=== PATIENT | male | born 1960 | race Caucasian/White ===

== ENCOUNTER 2022-02-21 15:13 | Inpatient (IN) | payer OTHER ==
[~2022-02-21] VITALS: Ht 185.4 cm; Wt 122.0 kg
[2022-02-21] VITALS (11 sets, daily range): BP systolic 123–159; BP diastolic 75–90
[~2022-02-21 15:13] MED LIST: B121000 MC1 PO; BACLOFEN20 MG PO; CALCIUM600 M1 PO; CRESTOR10 MG PO; GABAPENTIN300 M2 PO; HYZAAR1 TAB PO; LANSOPRAZOLE30 MG PO; TRULICITY0.75 MG/0. SC; VITAMIN C500 M6 PO; ZINC50 M1 PO
[2022-02-21 16:34] LABS: URINE BILIRUBIN - DIPSTICK NEGATIVE (NEGATIVE); URINE BLOOD DIPSTICK NEGATIVE (NEGATIVE); URINE COLOR YELLOW; URINE GLUCOSE - DIPSTICK NEGATIVE (NEGATIVE); URINE KETONE NEGATIVE (NEGATIVE); URINE LEUK ESTERASE NEGATIVE (NEGATIVE); URINE PROTEIN - DIPSTICK NEGATIVE (NEG-TRACE); URINE UROBILINOGEN - DIPSTICK 0.2 E.U./dL (0.2)
[2022-02-21 16:38] LABS: URINE NITRITE - DIPSTICK NEGATIVE (Negative)
[2022-02-21 16:39] LABS: IMMATURE GRANULOCYTES 0.3 % (0.0-5.0); MEAN CELL VOLUME 90.1 fL CALC (80.0-100.0); MEAN CORPUSCULAR HGB 28.9 pG CALC (26.0-32.0); MEAN CORPUSCULAR HGB CONC 32.1 g/dL CAL (32.0-36.0); NEUT# 4.59 thou/uL (1.82-7.42); RED BLOOD COUNT 3.84 mill/uL (4.70-6.10); RED CELL DISTRI WIDTH 12.9 % (11.5-15.5)
[2022-02-21 16:50] LABS: ALBUMIN 4.8 g/dL (3.2-5.0); POTASSIUM 4.9 mmol/l (3.5-5.1)
[2022-02-21 16:57] LABS: BILIRUBIN, TOTAL 0.4 mg/dL (0.0-1.4); TOTAL PROTEIN 8.9 g/dL (6.3-8.2)
[2022-02-21 16:58] LABS: CREATININE 5.6 mg/dL (0.7-1.3); HEMATOCRIT 34.6 % (39.0-50.0); HEMOGLOBIN 11.1 g/dl (14.0-18.0)
[2022-02-21 18:06] LABS: MYOGLOBIN 132 ng/mL (0 - 121)
[2022-02-22] VITALS (7 sets, daily range): BP systolic 124–146; BP diastolic 76–87
[2022-02-22 05:34] LABS: HEMATOCRIT 36.7 % (39.0-50.0); HEMOGLOBIN 11.7 g/dl (14.0-18.0); MEAN CORPUSCULAR HGB 28.7 pG CALC (26.0-32.0); MEAN CORPUSCULAR HGB CONC 31.9 g/dL CAL (32.0-36.0); RED BLOOD COUNT 4.08 mill/uL (4.70-6.10); RED CELL DISTRI WIDTH 12.9 % (11.5-15.5)
[2022-02-22 05:51] LABS: CREATININE 4.8 mg/dL (0.7-1.3); POTASSIUM 4.5 mmol/l (3.5-5.1)
[2022-02-23 00:10] VITALS: BP 115/73
[2022-02-23 04:13] VITALS: BP 130/75
[2022-02-23 07:49] VITALS: BP 137/86
[2022-02-23 10:06] LABS: ALBUMIN 4.7 g/dL (3.2-5.0); POTASSIUM 4.9 mmol/l (3.5-5.1)
[2022-02-23 10:24] LABS: CREATININE 3.8 mg/dL (0.7-1.3)
[2022-02-23 11:12] VITALS: BP 129/80
[2022-02-23] MEDS ORDERED: TAMSULOSIN0.4 MG PO (12:26)
== END 2022-02-23 14:14 | disposition home or self-care (01) | DRG 683 ==
LOC: ED 15:13 → ED-I 17:40 → ED 20:04 → MS2 20:05
PROVIDERS: Internal Medicine Nephrology; Nurse Practitioner; ADMIT Hospitalist; ATTEND Hospitalist
PROC: 0T9B70Z Drainage of Bladder with Drainage Device, Via Natural or Artificial Opening (ICD-10-PCS; principal; 2022-02-21)
DX: N17.9 Acute kidney failure, unspecified (principal); N13.8 Other obstructive and reflux uropathy; N40.1 Benign prostatic hyperplasia with lower urinary tract symptoms; N18.4 Chronic kidney disease, stage 4 (severe); N25.81 Secondary hyperparathyroidism of renal origin; N13.39 Other hydronephrosis; R33.8 Other retention of urine; I12.9 Hypertensive chronic kidney disease with stage 1 through stage 4 chronic kidney disease, or unspecified chronic kidney disease; E11.22 Type 2 diabetes mellitus with diabetic chronic kidney disease; D63.1 Anemia in chronic kidney disease; E78.00 Pure hypercholesterolemia, unspecified; Z20.822 Contact with and (suspected) exposure to COVID-19

== ENCOUNTER 2022-03-13 14:16 | Observation (INO) | payer OTHER ==
[2022-03-13] VITALS (12 sets, daily range): BP systolic 100–137; BP diastolic 54–77
[~2022-03-13] VITALS: Ht 193 cm; Wt 113.0 kg
[~2022-03-13 14:16] MED LIST changes: +TAMSULOSIN0.4 MG PO
[2022-03-13 15:26] LABS: HEMATOCRIT 34.5 % (39.0-50.0); HEMOGLOBIN 10.9 g/dl (14.0-18.0); IMMATURE GRANULOCYTES 0.5 % (0.0-5.0); MEAN CELL VOLUME 89.4 fL CALC (80.0-100.0); MEAN CORPUSCULAR HGB 28.2 pG CALC (26.0-32.0); MEAN CORPUSCULAR HGB CONC 31.6 g/dL CAL (32.0-36.0); NEUT# 16.66 thou/uL (1.82-7.42); RED BLOOD COUNT 3.86 mill/uL (4.70-6.10)
[2022-03-13 15:35] LABS: URINE BILIRUBIN - DIPSTICK NEGATIVE (NEGATIVE); URINE BLOOD DIPSTICK SMALL (NEGATIVE); URINE COLOR YELLOW; URINE GLUCOSE - DIPSTICK NEGATIVE (NEGATIVE); URINE KETONE NEGATIVE (NEGATIVE); URINE PROTEIN - DIPSTICK TRACE mg/dL (NEG-TRACE); URINE UROBILINOGEN - DIPSTICK 0.2 E.U./dL (0.2)
[2022-03-13 15:37] LABS: URINE LEUK ESTERASE SMALL (NEGATIVE); URINE NITRITE - DIPSTICK NEGATIVE (Negative)
[2022-03-13 15:41] LABS: ALBUMIN 4.2 g/dL (3.2-5.0); ALKALINE PHOSPHATASE 89 u/l (38-126); ANION GAP 15 (6-22 (CALC)); BUN 38 mg/dL (8-23); CARBON DIOXIDE 24 mmol/l (22-30); CHLORIDE 103 mmol/l (95-108); LIPASE 89 u/l (23-300); SGOT/AST 20 u/l (19-48); SODIUM 137 mmol/l (137-146); TOTAL PROTEIN 7.6 g/dL (6.3-8.2)
[2022-03-13 15:43] LABS: BILIRUBIN, TOTAL 0.6 mg/dL (0.0-1.4); BUN/CREATININE RATIO 15 (12-20 (CALC)); CREATININE 2.6 mg/dL (0.7-1.3); GFR 25 ML/MIN (>=60 (CALC)); GFR FOR AFR.AMER. 31 ML/MIN (>=60 (CALC))
[2022-03-13 15:47] LABS: URINE WBC 20-50 WBC/hpf (0-5)
[2022-03-13 16:00] LABS: ACT PARTIAL THROMBO TIME 28.9 SECONDS (20.0-32.5); PROTHROMBIN TIME 10.9 SECONDS (9.0-12.5)
[2022-03-14] VITALS (9 sets, daily range): BP systolic 99–121; BP diastolic 57–67
[2022-03-14 05:24] LABS: HEMATOCRIT 31.2 % (39.0-50.0); HEMOGLOBIN 9.9 g/dl (14.0-18.0); MEAN CELL VOLUME 90.2 fL CALC (80.0-100.0); MEAN CORPUSCULAR HGB 28.6 pG CALC (26.0-32.0); MEAN CORPUSCULAR HGB CONC 31.7 g/dL CAL (32.0-36.0); RED BLOOD COUNT 3.46 mill/uL (4.70-6.10); RED CELL DISTRI WIDTH 13.2 % (11.5-15.5)
[2022-03-14 05:44] LABS: CREATININE 2.2 mg/dL (0.7-1.3); MAGNESIUM 1.5 mg/dL (1.6-2.3); POTASSIUM 4.3 mmol/l (3.5-5.1)
[2022-03-14 05:51] LABS: ALBUMIN 3.2 g/dL (3.2-5.0)
[2022-03-15 00:12] VITALS: BP 106/65
[2022-03-15 05:09] VITALS: BP 119/69
[2022-03-15 05:36] LABS: HEMATOCRIT 31.3 % (39.0-50.0); HEMOGLOBIN 9.9 g/dl (14.0-18.0); IMMATURE GRANULOCYTES 0.4 % (0.0-5.0); MEAN CELL VOLUME 89.9 fL CALC (80.0-100.0); MEAN CORPUSCULAR HGB 28.4 pG CALC (26.0-32.0); MEAN CORPUSCULAR HGB CONC 31.6 g/dL CAL (32.0-36.0); NEUT# 11.06 thou/uL (1.82-7.42); RED BLOOD COUNT 3.48 mill/uL (4.70-6.10); RED CELL DISTRI WIDTH 13.2 % (11.5-15.5)
[2022-03-15 05:58] LABS: BILIRUBIN, TOTAL 0.3 mg/dL (0.0-1.4); CREATININE 2.1 mg/dL (0.7-1.3); MAGNESIUM 2.1 mg/dL (1.6-2.3); POTASSIUM 3.9 mmol/l (3.5-5.1); TOTAL PROTEIN 5.8 g/dL (6.3-8.2)
[2022-03-15 07:36] VITALS: BP 118/72
[2022-03-15 10:15] VITALS: BP 117/70
[2022-03-15] MEDS ORDERED: LEVAQUIN750 M1 PO (11:12)
== END 2022-03-15 13:52 | disposition home or self-care (01) | DRG 872 ==
LOC: ED 14:16 → ED-I 15:40 → ED 16:35 → MS2 16:36
PROVIDERS: Nurse Practitioner; ADMIT Internal Medicine; ATTEND Internal Medicine
PROC: 0T9B70Z Drainage of Bladder with Drainage Device, Via Natural or Artificial Opening (ICD-10-PCS; principal; 2022-03-13)
DX: A41.9 Sepsis, unspecified organism (principal); N39.0 Urinary tract infection, site not specified; L03.115 Cellulitis of right lower limb; N13.8 Other obstructive and reflux uropathy; N18.4 Chronic kidney disease, stage 4 (severe); N25.81 Secondary hyperparathyroidism of renal origin; N17.9 Acute kidney failure, unspecified; D63.1 Anemia in chronic kidney disease; N40.1 Benign prostatic hyperplasia with lower urinary tract symptoms; R33.8 Other retention of urine; I12.9 Hypertensive chronic kidney disease with stage 1 through stage 4 chronic kidney disease, or unspecified chronic kidney disease; E11.22 Type 2 diabetes mellitus with diabetic chronic kidney disease; S91.001A Unspecified open wound, right ankle, initial encounter; B96.5 Pseudomonas (aeruginosa) (mallei) (pseudomallei) as the cause of diseases classified elsewhere; X58.XXXA Exposure to other specified factors, initial encounter; Z95.820 Peripheral vascular angioplasty status with implants and grafts; Z20.822 Contact with and (suspected) exposure to COVID-19
CPT/HCPCS: G0378; J1650; J3475

== ENCOUNTER 2022-03-16 09:16 | Emergency (ER) | payer OTHER ==
[~2022-03-16] VITALS: Ht 193 cm; Wt 114.0 kg
[~2022-03-16 09:16] MED LIST changes: +LEVAQUIN750 M1 PO
[2022-03-16 09:56] VITALS: BP 134/81
== END 2022-03-16 10:26 | disposition home or self-care (01) | DRG 728 ==
LOC: ED 09:16
DX: N47.2 Paraphimosis (principal); I10 Essential (primary) hypertension; E11.9 Type 2 diabetes mellitus without complications; R33.9 Retention of urine, unspecified; Z96.0 Presence of urogenital implants